=== PATIENT | female | born 1930 | race Caucasian/White ===

== ENCOUNTER 2016-12-17 08:31 | Inpatient (IN) | payer OTHER ==
[~2016-12-17] VITALS: Ht 172.7 cm; Wt 105.7 kg
--- NOTE | ~2016-12-17 | D ---
[facility] [place] [address] DISCHARGE SUMMARY Name: PETERSONKIMBERLY SEVEN Room #: 303-P ADM IN M.R.#: [id number] Admission: 12/17/16 Attend Phys: Edward Noel MD Discharge: Date of : 34 Report #: [id number] THIS REPORT FOR: //name// CC: Edward Noel DATE OF SERVICE: 12/18/2016 DATE OF DISCHARGE: 12/18/2016. ADMITTING DIAGNOSIS: Symptomatic anemia. DISCHARGE DIAGNOSES: 1. Symptomatic anemia. 2. Hypertension. 3. Dementia. HISTORY OF PRESENT ILLNESS: The patient is an 86-year-old female, presented to my office 2 days ago with evaluation for dyspnea. Workup revealed hemoglobin of 6.7. She was brought in for elective transfusion and further evaluation for dyspnea. She does have significant dementia, lives with her son and also has hypertension. She is not aware of any GI bleeding. She does take Protonix for reflux as well. MEDICATIONS: Include losartan 100 mg a day, metoprolol XL 50 mg a day, Protonix 40 mg a day, hydralazine 50 mg a day, meloxicam 7.5 mg a day, tramadol 50 mg p.r.n., Cymbalta 60 mg a day, mirtazapine 15 mg at bedtime, and Synthroid 0.15 mg a day. REVIEW OF SYSTEMS: CONSTITUTIONAL: Positive for fatigue and weakness. HEENT: No headaches or visual changes. CHEST: She has dyspnea. No chest pain. No cough or sputum production. GASTROINTESTINAL: No vomiting, diarrhea, black stools, or tarry stools. GENITOURINARY: No burning or frequency. EXTREMITIES: No joint pains or swelling. SKIN: No rashes or wounds. OBJECTIVE: GENERAL: She is a very pale, frail, and confused patient, who is in no acute distress. HEENT: Her mucous membranes are moist. NECK: Supple. No adenopathy, thyromegaly, or bruits. CHEST: Clear to auscultation. CARDIOVASCULAR: Regular rate and rhythm without murmur. ABDOMEN: Soft. No masses. Bowel sounds are active. She is nontender. EXTREMITIES: Show 1+ edema. [facility] [address] [place] [address] DISCHARGE SUMMARY Name: KIMBERLY WINKLER SEVEN Room #: 303-P [facility] IN ..#: [id number] Admission: 12/17/16 Attend Phys: Edward Noel MD Discharge: Date of : 34 Report #: [id number] LABORATORY DATA: Her initial hemoglobin was 6.7 in the office, repeat on admission was 7.0. WBCs 8.9, platelet count 333. Her other labs done as an outpatient was essentially normal. Her chest x-ray shows no infiltrate or heart failure. ASSESSMENT: Symptomatic anemia. She was admitted and given 2 units of packed red blood cells and a dose of Lasix in between. Her hemoglobin improved to 9.5. She was still somewhat dyspneic, but her sats were maintained above 90% with activity. She will be evaluated for PT, OT, and home health. I spoke to her son, who cares for her at home. She will be discharged to home today with home health. We will wait on her iron studies, likely we will need iron supplementation, pending that. We will increase her Protonix to b.i.d. Otherwise maintain her meds same as they were on admission. DIET: Regular diet. ACTIVITY: As tolerated. By: [id number] Edward Noel MD /nt
[2016-12-17] MEDS ORDERED: LEVOTHYROXINE 0.15MG PO (14:12)
[2016-12-17] MEDS ORDERED: CEFDINIR300 MG PO (14:13)
[2016-12-17] MEDS ORDERED: CYMBALTA60 MG PO (14:13)
[2016-12-17] MEDS ORDERED: MOBIC7.5 MG PO (14:14)
[2016-12-17] MEDS ORDERED: PROTONIX40 M1 PO (14:14)
[2016-12-17] MEDS ORDERED: FLUDROCORTISON0.1 MG PO (14:14)
[2016-12-17] MEDS ORDERED: TOPROL XL25 MG PO (14:15)
[2016-12-17] MEDS ORDERED: COZAAR 50 MG TA50 M2 PO (14:15)
[2016-12-17] MEDS ORDERED: HYDRALAZINE 2525 MG PO (14:16)
[2016-12-17] MEDS ORDERED: MIRTAZAPINE15 M2 PO (14:16)
[2016-12-17] MEDS ORDERED: TRAMADOL 50 MG50 MG PO (14:17)
[2016-12-17 14:56] VITALS: BP 181/85
[2016-12-17 15:05] LABS: HEMATOCRIT 22.2 % (37.0-47.0); MCH 22.6 pg (26.0-34.0); MCHC 31.6 g/dL (28.0-37.0); MCV 71.6 fL (80.0-100.0); RBC 3.1 mil/uL (4.20-5.00); WBC 8.9 thou/uL (4.0-11.0)
[2016-12-17 17:28] VITALS: BP 166/63; BP 177/76; BP 188/76
[2016-12-17 19:16] VITALS: BP 150/58
[2016-12-17 21:51] VITALS: BP 150/64; BP 177/72; BP 178/86
[2016-12-18 01:15] VITALS: BP 178/86
[2016-12-18 03:57] LABS: HEMATOCRIT 28.4 % (37.0-47.0); MCH 24.2 pg (26.0-34.0); MCHC 33.3 g/dL (28.0-37.0); MCV 72.6 fL (80.0-100.0); RBC 3.91 mil/uL (4.20-5.00); RDW 19.7 % (10.5-14.5); WBC 10.3 thou/uL (4.0-11.0)
[2016-12-18 04:04] LABS: HEMOGLOBIN 9.5 gm/dL (12.0-15.0)
[2016-12-18 04:18] VITALS: BP 141/76
[2016-12-18 04:33] VITALS: BP 198/82
[2016-12-18 07:23] VITALS: BP 146/72
[2016-12-18] MEDS ORDERED: NEXIUM40 MG PO (07:41)
[2016-12-18 11:51] VITALS: BP 146/72
[2016-12-18 17:54] VITALS: BP 146/72
== END 2016-12-18 18:55 | disposition home health service (06) | DRG 812 ==
LOC: 3N 08:31
PROVIDERS: Family Medicine
PROC: 30233N1 Transfusion of Nonautologous Red Blood Cells into Peripheral Vein, Percutaneous Approach (ICD-10-PCS; principal; 2016-12-17)
DX: D64.9 Anemia, unspecified (principal); I10 Essential (primary) hypertension; F03.90 Unspecified dementia, unspecified severity, without behavioral disturbance, psychotic disturbance, mood disturbance, and anxiety; Z79.899 Other long term (current) drug therapy
CPT/HCPCS: 10094; 23012

== ENCOUNTER → 2017-01-15 | Outpatient (CLI) | payer OTHER, MEDICARE ==
[~2017-01-15] VITALS: Ht 167.6 cm; Wt 104.3 kg
[~2017-01-15] MED LIST: ASPIR 8181 MG PO; CEFDINIR300 MG PO; CHROMIUM PICO200 MC1 PO; CLARITIN10 MG PO; COZAAR 50 MG TA50 M2 PO; CRANBERRY500 MG PO; CYMBALTA60 MG PO; FISH OIL 1,001000 M2 PO; FLUDROCORTISON0.1 MG PO; HYDRALAZINE 2525 MG PO; K-DUR 20 MEQ T20 MEQ PO; LASIX 40 MG TAB40 M2 PO; LEVOTHYROXINE 0.15MG PO; MIRTAZAPINE15 M2 PO; MOBIC7.5 MG PO; NEXIUM40 MG PO; PROBIOTIC1 EAC2 PO; PROTONIX40 M1 PO; STOOL SOFTENER100 MG PO; TOPROL XL25 MG PO; TRAMADOL 50 MG50 MG PO; TURMERIC500 MG PO; VITAMIN B-12500 MC5 PO
--- NOTE | ~2017-01-15 | S ---
[facility] [place] [address] SURGICAL PATH RPT PROCEDURE Name: ALICIA STONE Room #: REG KAREL M.Maru.#: [id number] Admission: 01/15/17 Date of : 34 Discharge: Report #: [id number] Path Case #: [id number] PATHOLOGY REPORT COLLECTION DATE: 01/15/2017 RECEIVED DATE: 01/15/2017 SUBMITTING PHYS: Dr. Demetrius Tillman OTHER PHYS: Dr. Edward Noel SPECIMEN(S) RECEIVED: A.Gastric bx * * * * * * * * * * * * FINAL DIAGNOSIS: "Gastric bx," biopsy: - Gastric mucosa with mild reactive changes and mild predominantly chronic inflammation. - Negative H. pylori immunohistochemical stain (block A1); control reacted appropriately. (LUISW:; 01/17/2017) PATHOLOGIST: Teresita Carvalho M.D. REPORT ELECTRONICALLY SIGNED BY: Teresita Carvalho M.D. DATE/TIME: 01/17/2017 13:44 * * * * * * * * * * * * GROSS PATHOLOGY: Received in formalin labeled "Alicia Stone, gastric BX," are 4 segments of anthony soft tissue measuring 1.5 x 0.2 x 0.2 cm in aggregate dimensions and ranging from 0.1 to 0.6 cm in maximum dimension. The specimen is submitted entirely in cassette A1. (JIM; 01/16/2017) CLINICAL HISTORY: Anemia INITIAL CPT CODE(S): A; 44099, 64142 Professional services performed by [facility] at [facility] [address] [place] [address] Technical services performed by [facility] at [address] [place] [id number]. [facility] [address] [place] [address] SURGICAL PATH RPT PROCEDURE Name: ALICIA STONE Room #: REG KAREL Colón#: [id number] Admission: 01/15/17 Date of : 34 Discharge: Report #: [id number] Path Case #: [id number] [facility] [address] [address] PHONE: [phone] DIRECTOR: Geovanni Leavitt M.D. * * * END OF REPORT * * *
== END | disposition home or self-care (01) ==
LOC: GI 08:40
DX: K29.50 Unspecified chronic gastritis without bleeding (principal); I10 Essential (primary) hypertension; E03.9 Hypothyroidism, unspecified; E78.00 Pure hypercholesterolemia, unspecified; M19.90 Unspecified osteoarthritis, unspecified site; K21.9 Gastro-esophageal reflux disease without esophagitis; F32.89 Other specified depressive episodes; Z79.899 Other long term (current) drug therapy; Z79.82 Long term (current) use of aspirin; Z90.710 Acquired absence of both cervix and uterus; Z98.49 Cataract extraction status, unspecified eye; Z86.73 Personal history of transient ischemic attack (TIA), and cerebral infarction without residual deficits
CPT/HCPCS: 62110; 62900